=== PATIENT | female | born 1980 | race African-American/Black ===

== ENCOUNTER 2020-02-06 15:55 | Outpatient (CLI) | payer MEDICARE, MEDICAID, SELFPAY ==
--- NOTE | ~2020-02-06 | XR_ITS ---
XR knee LT 3V 02/06/2020 16:47 Indication: Left knee pain Procedure: 3 views left knee Comparison: No prior studies for comparison. Findings: There is mild osteoarthritis of the left knee. No fracture or traumatic malalignment. No si gnificant joint effusion. No radiopaque foreign bodies. Impression: 1: Mild osteoarthritis of the left knee. Reviewed, dictated and finalized at location A. Impression: 1: Mild osteoarthritis of the left knee.
--- NOTE | ~2020-02-06 | XR_ITS ---
XR foot RT standing 2V, XR foot LT standing 2V 02/06/2020 16:48 Indication: Systemic connective tissue disorder Procedure: 2 views of the right and left feet Comparison: No prior studies for comparison. Findings: Normal anatomic alignment. No fracture, subluxation or dislocation. No significant joint sp ronan narrowing. Normal mineralization. Lisfranc joint intact bilaterally. No focal soft tissue abnorma lity. No radiopaque foreign bodies. No erosive changes. Impression: 1: No significant bone or joint abnormality. Reviewed, dictated and finalized at location A. Impression: 1: No significant bone or joint abnormality. Impression: 1: No significant bone or joint abnormality.
--- NOTE | ~2020-02-06 | XR_ITS ---
XR wrist RT min 3V 02/06/2020 16:48 Indication: Osteoarthritis of the wrist Procedure: 4 views right wrist Comparison: No prior studies for comparison. Findings: There is severe polyarticular osteoarthritis of the right wrist including the radiocarpal j oint, triscaphe joint and intercarpal joints. There are subchondral cysts in the distal aspect of the radius and scaphoid. Scaphoid has an atypical appearance. Cannot exclude chronic fracture deformity. 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 2: Atypical appearance to the scaphoid, possibly due to degenerative changes, although chronic fract ure deformity is not excluded. Reviewed, dictated and finalized at location A. 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 2: Atypical appearance to the scaphoid, possibly due to degenerative changes, although chronic fracture deformity is not excluded.
--- NOTE | ~2020-02-06 | XR_ITS ---
XR wrist LT min 3V DATE: 02/06/2020 16:48 INDICATION: Primary osteoarthritis TECHNIQUE: 4 views COMPARISON: None FINDINGS: There is osteoarthritic narrowing at the radiocarpal and carpal joints. No fracture, disloc ation, periosteal reaction or bone destruction is detected. No chondrocalcinosis. IMPRESSION: Osteoarthritis Reviewed, dictated and finalized at location B. IMPRESSION: Osteoarthritis
[2020-02-06 17:28] LABS: Add Urine Microscopic? NO; Appearance Urine Clear (Clear); Bilirubin Urine Negative (Negative); Blood Urine Negative (Negative); Color Urine Yellow (Yellow); Glucose Urine UA Negative (Negative); Ketones Urine Negative (Negative); Leukocyte Esterase Ur Negative LEU/UL (Negative); Nitrate Urine Negative (Negative); Protein Urine Negative (Negative); Specific Grav Ur 1.023 (1.001-1.035); Urobilinogen Urine Negative mg/dL (<2.0)
[2020-02-06 17:48] LABS: Erythrocyte Sedimentation Rate 17 mm/hr (0-20)
[2020-02-06 17:59] LABS: Complement C3 158 mg/dL (88-165)
[2020-02-06 18:27] LABS: Vitamin D 25 Hydroxy 26.5 ng/mL
[2020-02-09 01:46] LABS: Lupus dRVVT 1:1 Mix Interpreta Not Indicated; Lupus dRVVT Screen 34 sec (<=45); PTT-LA Screen 28 sec (<=40)
[2020-02-09 19:19] LABS: SM Antibody <1.0; SM/RNP Antibody <1.0; SS-A <1.0; SS-B <1.0
[2020-02-10 02:27] LABS: Angiotensin Converting Enzyme 55 U/L (9-67)
== END 2020-02-06 15:56 | disposition home or self-care (01) ==
PROVIDERS: Visit Provider Internal Medicine
DX: M19.031 Primary osteoarthritis, right wrist (principal); M35.9 Systemic involvement of connective tissue, unspecified; M19.032 Primary osteoarthritis, left wrist; M17.12 Unilateral primary osteoarthritis, left knee; E55.9 Vitamin D deficiency, unspecified
CPT/HCPCS: 36415; 73110; 73562; 73620; 81003; 82164; 82306; 85613; 85652; 85730; 86160; 86225; 86235

== ENCOUNTER 2020-06-05 15:00 | Outpatient (CLI) | payer MEDICARE, MEDICAID, SELFPAY ==
--- NOTE | ~2020-06-05 | MR_ITS ---
EXAMINATION: MR hand RT wo/w con DATE: 06/05/2020 16:06 INDICATION: Primary osteoarthritis at the right hand. TECHNIQUE: Magnetic resonance imaging (MRI) of the right hand was performed without and with 20 mL Mu ltihance intravenous contrast to include the wrist and metacarpals but which excludes digits. Sequenc es included axial, sagittal and coronal T1-weighted FSE and T2-weighted FS FSE, axial T1-weighted FS FSE and postcontrast axial and coronal T1-weighted FS FSE . COMPARISON: Right hand radiographs dated 02/06/2020 FINDINGS: There is solid osseous fusion between the capitate and the second and third metacarpals. Additional s olid osseous fusion between the lunate and the distal radius. There is prominent dorsal rotation of t he scaphoid which along with advanced osteoarthritis at the radioscaphoid articulation accounts for t he abnormal appearance to the bone on the prior radiographs. No fracture. There is subarticular cysti c changes with peripheral synovial enhancement along both sides of the radial scaphoid articulation. Additional severe osteoarthritis at the triscaphe and mid carpal joints and moderate osteoarthritis a t the first carpal metacarpal joint. No pathologically marrow replacing process. The flexor and exten sor tendons appear normal. Intrinsic musculature of the hand is unremarkable. No abnormally enhancing soft tissue lesions identified. Partial tear of the central fiber cartilaginous disc of the triangul ar fibrocartilage complex. IMPRESSION: 1. No acute fracture. 2. 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 3. Severe polyarticular osteoarthritis in the carpus, advanced with bone remodeling and prominence of reticular cystic changes at the radioscaphoid articulation. Reviewed, dictated and finalized at location A. [employer] IMPRESSION: 1. No acute fracture. 2. 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 3. Severe polyarticular osteoarthritis in the carpus, advanced with bone remode ling and prominence of reticular cystic changes at the radioscaphoid articulati on.
[2020-06-05 15:33] LABS: Estimated Glomerular Filt Rate > 60
== END 2020-06-05 15:01 | disposition home or self-care (01) ==
PROVIDERS: Visit Provider Internal Medicine
DX: M19.031 Primary osteoarthritis, right wrist (principal)
CPT/HCPCS: 73220; A9577